=== PATIENT | female | born 1970 | race Caucasian/White ===

== ENCOUNTER 2021-03-27 16:09 | Outpatient (CLI) | payer OTHER, SELFPAY ==
--- NOTE | ~2021-03-27 | MM_ITS ---
EXAMINATION: MM screening shanice BI w virginie HISTORY: Screening mammogram TECHNIQUE: Craniocaudal and mediolateral oblique 3-D tomosynthesis images were obtained and synthetic 2-D images were generated. CAD analysis was submitted and interpreted. COMPARISON: No prior mammogram is available for comparison at this institution. BREAST PARENCHYMAL COMPOSITION: There are scattered areas of fibroglandular density. FINDINGS: 4.8 x 6 mm circumscribed opacity in the posterior upper outer right breast, consistent with benign lymph node. There is no evidence of suspicious mass, calcification, or architectural distorti on to suggest malignancy in either breast. There has been no suspicious interval change. IMPRESSION: 1. No mammographic evidence of malignancy. 2. Recommend routine screening mammography in one year. BI-RADS Category 2: Benign finding(s). Reviewed, dictated and finalized at location A. ATTENDANT
== END 2021-03-27 16:10 | disposition home or self-care (01) ==
PROVIDERS: PCP Internal Medicine; Visit Provider Internal Medicine
DX: Z12.31 Encounter for screening mammogram for malignant neoplasm of breast (principal)
CPT/HCPCS: 77063; 77067

== ENCOUNTER 2022-06-25 07:47 | Outpatient (CLI) | payer OTHER, SELFPAY ==
--- NOTE | ~2022-06-25 | MM_ITS ---
EXAMINATION: MM screening shanice BI w virginie HISTORY: Screening mammogram TECHNIQUE: Craniocaudal and mediolateral oblique 3-D tomosynthesis images were obtained and synthetic 2-D images were generated. CAD analysis was submitted and interpreted. COMPARISON: 03/27/2021 bilateral screening mammogram BREAST PARENCHYMAL COMPOSITION: There are scattered areas of fibroglandular density. FINDINGS: Stable circumscribed opacity probable lymph node in the posterior upper outer right breast. There is no evidence of suspicious mass, calcification, or architectural distortion to suggest malig idalia in either breast. There has been no suspicious interval change. IMPRESSION: 1. No mammographic evidence of malignancy. 2. Recommend routine screening mammography in one year. BI-RADS Category 2: Benign finding(s). Reviewed, dictated and finalized at location A. CTOR OF EXTENSION WORK
--- NOTE | ~2022-06-25 | DEXA_ITS ---
Bone Density Report Name: ACE ALMARAZ Age: 52 Sex: Female Ethnicity: White Date of : 1970 Indication: postmenopausal; screening for osteoporosis; height loss; Referring Provider: SWETA PEREZ Study: Bone densitometry was performed. Exam Date: June 25, 2022 Accession number: [id number] Bone Density: Region BMD T-score Z-score Classification AP Spine(L1-L4) 0.930 -1.1 0.0 Osteopenia Femoral Neck (Left) 0.689 -1.4 -0.4 Osteopenia Total Hip (Left) 0.825 -1.0 -0.3 Normal Femoral Neck (Right) 0.679 -1.5 -0.5 Osteopenia Total Hip (Right) 0.812 -1.1 -0.4 Osteopenia Total Hip Mean 0.818 -1.1 -0.4 Osteopenia World Health Organization criteria for BMD impression classify patients as: Normal (T-score at or above -1.0), Osteopenia (T-score between -1.0 and -2.5), or Osteoporosis (T-score at or below -2.5). 10-year Fracture Risk(1): Major Osteoporotic Fracture 6.4% Hip Fracture 0.5% Reported Risk Factors: [place] (), Neck BMD=0.679, BMI=25.6 (1) FRAX(R) Version 3.08. Fracture probability calculated for an untreated patient. Fracture probability may be lower if the patient has received treatment. Clinical Information Provided by Patient: Has used the following medications: Vitamin D, Calcium Patient maximum height was 68 Menopause Age: 43 Drinks caffeinated beverages Onset of menses at age 11 Number of children 0 Impression: The patient has low bone mass, based on the Right Femoral Neck T-score. The patient has an estimated ten-year risk of hip fracture of 0.5% and an estimated ten-year risk of major fracture of 6.4%, based on the WHO FRAX algorithm. Discussion: BONE DENSITY IS LOW AT ONE OR MORE SKELETAL SITES. This patient's lowest T-score is low at one or more skeletal sites. It meets the World Health Organization's (WHO) criteria for ?low bone mass? (T-score between -1.0 and -2.5). The patient's 10-year risk of fracture as calculated by FRAX is less than the threshold where pharmacological therapy is recommended by the National Osteoporosis Foundation (NOF). However, all treatment decisions require clinical judgment and consideration of individual patient factors, including patient preferences, comorbidities, previous drug use, risk factors not captured in the FRAX model (e.g., frailty, falls, vitamin D deficiency, increased bone turnover, interval significant decline in bone density) and possible under or overestimation of fracture risk by FRAX. The patient should follow a healthful lifestyle (good nutrition with adequate calcium and vitamin D, and appropriate weight-bearing exercise). Follow-Up: Consider repeating this study in 2 to 3 years to reassess this patient's status, or sooner if there is some new clinical indication. Reported by: JASPER on
== END 2022-06-25 07:48 | disposition home or self-care (01) ==
PROVIDERS: PCP Nurse Practitioner; Visit Provider Nurse Practitioner
DX: Z12.31 Encounter for screening mammogram for malignant neoplasm of breast (principal); Z13.820 Encounter for screening for osteoporosis; M85.88 Other specified disorders of bone density and structure, other site
CPT/HCPCS: 77063; 77067; 77080

== ENCOUNTER 2022-07-31 16:31 | Emergency (ER) | payer OTHER, SELFPAY ==
[2022-07-31 16:46] VITALS: BP 143/84; PULSE 73; RESP 16; TEMP 35.9; O2SAT 100
--- NOTE | 2022-07-31 17:26 | ED.URI ---
HPI - URI/Sore Throat General Chief Complaint: Upper Respiratory Infection Stated Complaint: cough,congestion Time Seen by Provider: 07/31/22 17:00 Source: patient Mode of arrival: ambulatory Limitations: no limitations History of Present Illness HPI Narrative: Tameka is a 52-year-old female patient presenting to the clinic today with complaints cough and congestion x5 days. She denies any fever chills. States she is having a productive cough with some yellow phlegm. History of asthma/bronchitis. She has been using an albuterol inhaler with mild relief. States she is coughing a lot at night and this is keeping her awake. MD elicited complaint: cough, rhinorrhea and nasal congestion Related Data Home Medications Medication Instructions Recorded Confirmed estradiol 1.25 gram/actuation 1 pump transdermal DAILY 04/13/19 07/31/22 (0.06%) transdermal gel pump (EstroGel) cetirizine 10 mg capsule (Allergy 10 mg PO DAILY 09/25/20 07/31/22 Relief (cetirizine)) Allergies Allergy/AdvReac Type Severity Reaction Status Date / Time latex Allergy Unknown unknown Verified 07/31/22 16:57 milk Allergy Unknown unknown Verified 07/31/22 16:57 nirmatrelvir AdvReac Rash Verified 07/31/22 16:57 [From Paxlovid (EUA)] ritonavir AdvReac Rash Verified 07/31/22 16:57 [From Paxlovid (EUA)] Molds and Smuts Allergy Unknown unknown Uncoded 07/31/22 16:57 Review of Systems Review of Systems: Pertinent positives per HPI. Patient denies any fever, chills, rash, headache, visual changes, dizziness,shortness of breath, chest pain, palpitations, nausea, vomiting, diarrhea, constipation, abdominal pain, or any urinary issues. FORMERLY [facility] Family History Family History Mother Family history of malignant neoplasm Family history of diabetes mellitus in first degree relative Social History Social History Smoking status: Never smoker Second hand tobacco smoke exposure: No Alcohol intake: current Drinks per week: 4 Alcohol use details: social Substance use: never Substance use type: does not use Comments At the time of my signature, I reviewed and agree with the nursing past medical, surgical, social, and family history. There is no relevant family history pertinent to the patient complaint. Exam Narrative: General: Well-developed, well nourished, in no apparent distress Head: Normocephalic, atraumatic Eyes: Pupils equally round and reactive to light bilaterally, EOM intact, sclera and conjunctive clear, no discharge, lids normal Ears: TMs intact and clear, ear canals clear, no drainage, grossly hearing normal. Nose: Nares patent, clear nasal discharge, no inflammation, no sinus tenderness. Mouth: Oral pharynx without lesions or masses, good dentition, MMM. Neck: Supple, trachea midline, no enlargement of anterior or posterior cervical nodes, no thyroid masses or goiter palpable. Cardio: Regular rate and rhythm, s1 and s2 normal, no murmur appreciated. Resp: Faint expiratory wheezing, no rhonchi, rales, or rubs Course Course Emergency Course: Portions of this record may have been created with voice recognition software. Level of Care: Express Care Visit Vital Signs Vital signs: Vital Signs Temperature 35.9 C L 07/31/22 16:46 Pulse Rate 73 07/31/22 16:46 Respiratory Rate 16 07/31/22 16:46 Blood Pressure 143/84 H 07/31/22 16:46 Pulse Oximetry 100 07/31/22 16:46 Oxygen Delivery Room Air 07/31/22 16:46 Temperature 35.9 C L 07/31/22 16:46 Pulse Rate 73 07/31/22 16:46 Respiratory Rate 16 07/31/22 16:46 Blood Pressure 143/84 H 07/31/22 16:46 Pulse Oximetry 100 07/31/22 16:46 Oxygen Delivery Room Air 07/31/22 16:46 Vital signs reviewed MDM - URI/Sore Throat MDM Narrative Medical decision making narrative: At the time of visit patient is rest
== END 2022-07-31 17:30 | disposition home or self-care (01) ==
PROVIDERS: Emergency Provider Nurse Practitioner Family; PCP Internal Medicine
DX: J40 Bronchitis, not specified as acute or chronic (principal)
CPT/HCPCS: 99213; G0463

== ENCOUNTER 2022-08-23 16:13 | Emergency (ER) | payer OTHER, SELFPAY ==
--- NOTE | ~2022-08-23 | XR_ITS ---
EXAMINATION: XR wrist RT min 3V DATE: 08/23/2022 17:33 INDICATION: Ulnar-sided right wrist pain post fall TECHNIQUE: Posteroanterior, ulnar deviation, oblique, and lateral views of the right wrist were obtai ana. COMPARISON: none FINDINGS: Bone alignment is normal. No fracture. Minimal to mild polyarticular osteoarthritis at the radial asp ect of the carpus and several of the metacarpophalangeal and interphalangeal joints. Soft tissues are unremarkable. IMPRESSION: 1. No acute osseous abnormality. Reviewed, dictated and finalized at location A.
--- NOTE | 2022-08-23 16:26 | ED.UPPEXIN ---
HPI - Extremity Injury (Upper) General Chief Complaint: Extremity Injury, Upper Stated Complaint: rt arm injury Time Seen by Provider: 08/23/22 16:50 Source: patient Mode of arrival: ambulatory Limitations: no limitations History of Present Illness HPI narrative: Tameka is a 52-year-old female patient presenting to the clinic today with complaints right wrist pain x1 week. She reports that she fell doing yard work last week and hit her right ulna on the concrete. Has a knot in a bruise over the area. States that the pain has not been getting better. She reports that she did feel a pop again today and now the pain is worse. She is concerned that she may have a fracture of her ulna and is requesting an x-ray. Related Data Home Medications Medication Instructions Recorded Confirmed estradiol 1.25 gram/actuation 1 pump transdermal DAILY 04/13/19 07/31/22 (0.06%) transdermal gel pump (EstroGel) cetirizine 10 mg tablet (Zyrtec) 10 mg PO DAILY 08/23/22 08/23/22 prednisone 5 mg tablet 5 mg PO DAILY 08/23/22 08/23/22 Allergies Allergy/AdvReac Type Severity Reaction Status Date / Time latex Allergy Unknown unknown Verified 08/23/22 16:49 milk Allergy Unknown unknown Verified 08/23/22 16:49 nirmatrelvir AdvReac Rash Verified 08/23/22 16:49 [From Paxlovid (EUA)] ritonavir AdvReac Rash Verified 08/23/22 16:49 [From Paxlovid (EUA)] Molds and Smuts Allergy Unknown unknown Uncoded 08/23/22 16:49 Review of Systems Review of Systems: Pertinent positives per HPI. Patient denies any fever, chills, rash, headache, visual changes, dizziness, cough, shortness of breath, chest pain, palpitations, nausea, vomiting, diarrhea, constipation, abdominal pain, or any urinary issues. FORMERLY [facility] Family History Family History Mother Family history of malignant neoplasm Family history of diabetes mellitus in first degree relative Social History Social History Smoking status: Never smoker Second hand tobacco smoke exposure: No Alcohol intake: current Drinks per week: 4 Alcohol use details: social Substance use: never Substance use type: does not use Comments At the time of my signature, I reviewed and agree with the nursing past medical, surgical, social, and family history. There is no relevant family history pertinent to the patient complaint. Exam Narrative: General: Well-developed, well nourished, in no apparent distress Head: Normocephalic, atraumatic. Cardio: Regular rate and rhythm, s1 and s2 normal, no murmur appreciated. Resp: Clear to auscultation bilaterally, no rhonchi, rales, wheezing or rubs. Musculoskeletal: Mild knot/swelling/bruising to the right volar aspect of the distal ulna with tenderness to palpation, no pain with flexion or extension of the right wrist, grossly normal range of motion, muscle strength strong and equal, peripheral pulse strong, no edema, no cyanosis, normal gait and station Course Course Emergency Course: Portions of this record may have been created with voice recognition software. Level of Care: Express Care Visit Vital Signs Vital signs: Vital Signs Temperature 36.7 C 08/23/22 16:47 Pulse Rate 74 08/23/22 16:47 Respiratory Rate 18 08/23/22 16:47 Blood Pressure 141/66 H 08/23/22 16:47 Pulse Oximetry 100 08/23/22 16:47 Oxygen Delivery Room Air 08/23/22 16:47 Temperature 36.7 C 08/23/22 16:47 Pulse Rate 74 08/23/22 16:47 Respiratory Rate 18 08/23/22 16:47 Blood Pressure 141/66 H 08/23/22 16:47 Pulse Oximetry 100 08/23/22 16:47 Oxygen Delivery Room Air 08/23/22 16:47 Vital signs reviewed MDM - Extremity Injury (Upper) MDM Narrative Medical decision making narrative: At the time of visit patient is resting comfortably on the exam table. Patient was sent to the [facility] for x-ray. X-ray is
[2022-08-23 16:47] VITALS: BP 141/66; PULSE 74; RESP 18; TEMP 36.7; O2SAT 100
--- NOTE | 2022-08-23 16:56 | PC.NURSE ---
1653- RN to RN report received from Reema Costello. Pt transferred from [facility] d/t no xray availability
== END 2022-08-23 17:55 | disposition home or self-care (01) ==
PROVIDERS: Emergency Provider Nurse Practitioner Family; PCP Internal Medicine
DX: S60.211A Contusion of right wrist, initial encounter (principal); W19.XXXA Unspecified fall, initial encounter; Y93.H9 Activity, other involving exterior property and land maintenance, building and construction; J45.909 Unspecified asthma, uncomplicated
CPT/HCPCS: 73110; 99213; G0463

== ENCOUNTER → 2023-02-03 07:54 | Outpatient (CLI) | payer OTHER, SELFPAY ==
--- NOTE | ~2023-02-03 | MR_ITS ---
EXAMINATION: MR lumbar spine wo con DATE: 02/03/2023 08:22 INDICATION: Low back pain TECHNIQUE: Magnetic resonance imaging (MRI) of the lumbar spine was performed without intravenous con trast. Sequences included sagittal T2-weighted FSE, sagittal T2-weighted FS FSE, sagittal T1-weighted FSE, and axial T2-weighted FSE. COMPARISON: None FINDINGS: L5 spondylolysis with bilateral pars intra-articular is defects and 3 mm anterolisthesis of L5 on S1. Vertebral body heights are normal. Annular fissure and mild disc height loss at L5-S1 with associate d T1 and T2 hyperintense fibrofatty and fibrovascular degenerative endplate changes. Remaining discs are normal. The conus medullaris terminates at L2. There is normal signal in the caudal spinal cord. Paravertebral soft tissues are unremarkable. The following disc levels are specifically discussed: T12-L1: The disc does not extend beyond the endplate margin. There is mild bilateral facet joint oste oarthritis. There is no neural foraminal stenosis. There is no central canal stenosis. L1-L2: Very small left subarticular zone disc protrusion. There is mild bilateral facet joint osteoar thritis. There is no neural foraminal stenosis. There is negligible central canal stenosis. L2-L3: Very small bilateral foraminal zone disc protrusions. There is mild right and minimal left fac et joint osteoarthritis. There is mild left and minimal right neural foraminal stenosis. There is no central canal stenosis. L3-L4: Very small bilateral foraminal zone disc protrusions. There is mild bilateral facet joint oste oarthritis. There is mild left and minimal right neural foraminal stenosis. There is no central canal stenosis. L4-L5: Disc is bulging. There is moderate bilateral facet joint osteoarthritis. There is mild bilater al neural foraminal stenosis. There is mild central canal stenosis. L5-S1: Disc is bulging with annular fissure. Bilateral L5 pars interarticularis defects. There is mil d bilateral facet joint osteoarthritis. There is mild bilateral neural foraminal stenosis. There is n o central canal stenosis. IMPRESSION: 1. Mild lumbar spondylosis most notable for L5 spondylolysis with 3 mm anterolisthesis of L5 on S1. Reviewed, dictated and finalized at location A. IMPRESSION: 1. Mild lumbar spondylosis most notable for L5 spondylolysis with 3 mm anteroli sthesis of L5 on S1.
== END ==
PROVIDERS: PCP Nurse Practitioner Family; Visit Provider Nurse Practitioner Family
DX: M43.06 Spondylolysis, lumbar region (principal)
CPT/HCPCS: 72148

== ENCOUNTER 2023-06-26 08:54 | Outpatient (CLI) | payer OTHER, SELFPAY ==
--- NOTE | ~2023-06-26 | MM_ITS ---
EXAMINATION: MM screening shanice BI w virginie HISTORY: Screening mammogram, family history of breast cancer in her mother. TECHNIQUE: Craniocaudal and mediolateral oblique 3-D tomosynthesis images were obtained and synthetic 2-D images were generated. CAD analysis was submitted and interpreted. COMPARISON: 06/25/2022, 03/27/2021 BREAST PARENCHYMAL COMPOSITION: There are scattered areas of fibroglandular density. FINDINGS: No suspicious mass, calcification, or architectural distortion are identified in either kary ast to suggest malignancy. There has been no suspicious interval change. IMPRESSION: 1. No mammographic evidence of malignancy. 2. Recommend routine screening mammography in one year. BI-RADS Category 1: Negative Reviewed, dictated and finalized at location A. ERPRESS SETTER
== END 2023-06-26 08:55 | disposition home or self-care (01) ==
LOC: ANHIMG 08:55
PROVIDERS: PCP Nurse Practitioner Family; Visit Provider Nurse Practitioner Family
DX: Z12.31 Encounter for screening mammogram for malignant neoplasm of breast (principal)
CPT/HCPCS: 77063; 77067

== ENCOUNTER 2024-02-27 10:58 | Emergency (ER) | payer OTHER, SELFPAY ==
[2024-02-27 11:09] VITALS: BP 142/85; PULSE 81; RESP 17; TEMP 36.7; O2SAT 99
--- NOTE | 2024-02-27 11:20 | ED.GENADULT ---
HPI - General Adult General Chief complaint: Nausea/Vomiting/Diarrhea Stated complaint: stomach bug Time Seen by Provider: 02/27/24 11:20 Source: patient Mode of arrival: ambulatory Limitations: no limitations History of Present Illness HPI narrative: 53-year-old female patient presents to the [facility] with complaints of diarrhea for the past 5 days. Patient states she has had some body aches and chills but denies any fevers she is aware of. Denies vomiting states she has been feeling very nauseous has had some abdominal pain. Patient states that she did eat some and that her symptoms started 24 hours later. Patient states she has been trying to take some Imodium for symptoms but states that her diarrhea has gotten worse to the point were she is not able to control it sometimes and it is yellow liquidy. Related Data Home Medications Medication Instructions Recorded Confirmed cetirizine 10 mg tablet (Zyrtec) 10 mg PO DAILY 08/23/22 02/27/24 calcium 600 mg (as carbonate)-vit 1 tablet PO BID 02/10/23 02/27/24 D3 20 mcg (800 unit) chewable tablet (Caltrate plus D) estradiol 1.25 gram/actuation 0.5 pump transdermal DAILY 09/01/23 02/27/24 (0.06%) transdermal gel pump (EstroGel) fluticasone propionate 50 2 spray intranasal DAILY 02/08/24 02/27/24 mcg/actuation nasal spray,suspension albuterol 90 mcg/actuation aerosol 90 mcg inhalation PRN PRN 02/27/24 02/27/24 inhaler Shortness Of Breath Or Wheezing Allergies Allergy/AdvReac Type Severity Reaction Status Date / Time milk AdvReac Intermediate Gastrointestinal Verified 02/27/24 11:07 Upset latex AdvReac Mild Rash Verified 02/27/24 11:07 nirmatrelvir AdvReac Mild Rash Verified 02/27/24 11:07 [From Paxlovid (EUA)] ritonavir AdvReac Mild Rash Verified 02/27/24 11:07 [From Paxlovid (EUA)] Molds and Smuts AdvReac Mild Rash Uncoded 02/27/24 11:07 Review of Systems Review of Systems: CONSTITUTIONAL: Denies fever, chills, or sweats. EYES: Denies visual changes, redness, or discharge. ENT: Denies rhinorrhea, congestion, sore throat, or otalgia. CARDIOVASCULAR: Denies chest pain, palpitations, or edema. RESPIRATORY: Denies cough or dyspnea. GASTROINTESTINAL: Positive abdominal pain, nausea, denies vomiting, positive diarrhea. GENITOURINARY: Denies dysuria or hematuria. SKIN: Denies rash or itching. MUSCULOSKELETAL: Denies back pain, joint pain, or myalgia. NEUROLOGIC: Denies headache, numbness, or weakness. PSYCHIATRIC: Denies anxiety or depression. [facility] Past Medical History Medical History Lumbar spondylosis Osteopenia Family History Family History Mother Family history of malignant neoplasm Family history of diabetes mellitus in first degree relative Social History Social History Smoking status: Never smoker Second hand tobacco smoke exposure: No Alcohol intake: current Drinks per week: 4 Alcohol use details: social Substance use: never Substance use type: does not use Do You Feel Safe in your Home?: Yes Lack of Transportation: No Lack of Food: Never True Current Housing: I Have Housing Concerned About Future Housing: No Difficulty Paying Gas/Electric Bills: No Difficulty Paying for Meds: No Currently Unemployed: No Education: Trade/Vocational Certificate Difficulty w/ Childcare or Family Care: No Living arrangements: with family Occupation/Education: occupation Gender identity (if verbalized by the patient): Female Sexual Orientation (if Verbalized by the Patient): Straight or Heterosexual Spiritual care concerns: No Agree to blood products: Yes Comments At the time of my signature I agree with nursing past medical history, surgical, social, and family history. There is no relevant family history pertinent to the
== END 2024-02-27 11:35 | disposition short-term general hospital (02) ==
PROVIDERS: Emergency Provider Nurse Practitioner Family; PCP Nurse Practitioner Family
DX: R10.84 Generalized abdominal pain (principal); R19.7 Diarrhea, unspecified; M85.80 Other specified disorders of bone density and structure, unspecified site; M47.816 Spondylosis without myelopathy or radiculopathy, lumbar region
CPT/HCPCS: 99212; G0463

== ENCOUNTER 2024-07-24 10:59 | Emergency (ER) | payer OTHER, SELFPAY ==
--- OUTSIDE RECORDS SUMMARY | 2024-07-24 11:02 | XMS_ITS | Clinical Summary ---
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 Gender Identity Not on file Sexual Orientation Not on file Plan of Treatment Health Maintenance Due Date Last Done Comments Hepatitis C Virus (HCV) Screening 1970 TdaP Immunization 1968 Hepatitis B Immunization (1 of 3 - 19+ 3-dose series) 1987 Pap Smear 1989 Cervical Cancer Screening (CCS) 1998 HPV/Cotest 1998 Colonoscopy 2013 Colorectal Cancer Screening 2013 Cologuard 2018 Immunochemical Fecal Occult Blood 2018 Mammogram 2018 Pneumococcal Immunization (5 0+ years) (1 of 1 - PCV) 2018 Zoster Immunization (1 of 2) 2018 Influenza Immunization (#1) 2024 SARS-COV-2 Immunization ( - 2023- season) 2024 Respiratory Syncytial Virus (RSV) Immunization (Adult) (1 - 1-dose 75+ series) 2043 Meningococcal Immunization (ACWY) Aged Out No longer eligible based on patient's age to complete this topic Pneumococcal Immunization Combined Aged Out No longer eligible based on patient's age to complete this topic Rotavirus Immunization Aged Out No lo nger eligible based on patient's age to complete this topic
--- OUTSIDE RECORDS SUMMARY | 2024-07-24 11:02 | XMS_ITS | Clinical Summary ---
Author Organization [facility] Address [facility] [place] [address] Care Team Providers Care Wash Worker Name Role Phone Todd Nuñez MD Primary Care Provider [phone] Allergies Active Allergy Reactions Criticality Noted Date Comments Latex Unknown 07/05/2021 Medications Cetirizine-Pseudoe phedrine (ZYRTEC-D ALLERGY & CONGESTION OR) Activ e Estradiol (ESTROGEL) 0.75 MG/1.25 GM (0.06%) Gel Active Social History Tobacco Use Types Packs/Day Years Used Date Smoking Tobacco: Never Smokeless Tobacco: Never Alcohol Use Standard Drinks/Week Comments Yes 0 (1 standard drink = 0.6 oz pur e alcohol) RARELY Comments Unknown Sex and Gender Information Value Date Recorded Sex Assigned at Not on file Legal Sex Female 4:34 PM CDT Gender Identity Not on file Sexual Orientation Not on file Last Filed Vital Signs Vital Sign Reading Time Taken Comments Blood Pressure 148/93 07/07/2019 4:41 PM SURGEON'S ASSISTANT Pulse 106 07/07/2019 4:41 PM SURGEON'S ASSISTANT Temperature 36.7 C (98.1 F) 07/07/2019 4:41 PM SURGEON'S ASSISTANT Respiratory Rate 20 07/07/2019 4:41 PM SURGEON'S ASSISTANT Oxygen Saturation 99% 07/07/2019 4:41 PM SURGEON'S ASSISTANT Inhaled Oxygen Concentration - - Weight 69.4 kg (153 lb) 07/07/2019 4:41 PM SURGEON'S ASSISTANT Height 172.7 cm (5' 8 ) 07/07/2019 4:41 PM SURGEON'S ASSISTANT Body Mass Index 23.26 07/07/2019 4:41 PM SURGEON'S ASSISTANT Plan of Treatment Health Maintenance Due Date Last Done Comments Colorectal Cancer Screening Colonoscopy (10 Years) 1968 Annual Physical 1971 Hepatitis C 1986 DTaP, Tdap and Td Vaccines ( 1 - Tdap) 1987 Hepatitis B Vaccines (1 of 3 - 19+ 3-dose series) 1987 Mammogram Screening 2008 Zoster Vaccines (1 of 2) 2018 COVID-19 Vaccine (1 - 2023-2 5 season) 2024 Influenza Adult (#1) 2024 Meningococcal B Vaccine Aged Out No l onger eligible based on patient's age to complete this topic Meningococcal Vaccine Aged Out No kaykay nestor eligible based on patient's age to complete this topic Pneumococcal Vaccine: Pediat rics (0 to 5 Years) and At-Risk Patients (6 to 64 Years) Aged Out No longer eligible b ased on patient's age to complete this topic RSV Immunizations Under 20 Months Aged Out No longer eligible based on patient's age to complete this topic Insurance [employer] Care Teams Wash Worker Relationship Specialty Start Date End Date Todd Nuñez MD [address] [place] [address] PCP - General INTERNAL MEDICINE 07/07/19
--- OUTSIDE RECORDS SUMMARY | 2024-07-24 11:02 | XMS_ITS | Referral Summary ---
Author Organization [facility] [place] [address] Address [address] [place] [address] Care Team Providers Care Account Leader Name Role Phone Todd Nuñez MD Primary Care Provider [phone] Todd Nuñez MD Unavailable Encounters Date Type Department Care Team Description 06/06/2024 Telephone [facility] Specialty Services [address] [place] [phone] Sarah Campbell, JAMES GI PROCEDURE 3 DAY PRE CALL 06/01/2024 Telephone [facility] Gastroenterology [address] [place] [address] [facility] [place] [address] [place] [address] Sarah Vera, STORE SALES MANAGER 05/31/2024 Telephone [facility] Gastroenterology [address] [place] [address] [facility] [place] [address] [place] [address] Mackenzie Perez from Last 3 Months Allergies Active Allergy Reactions Criticality Noted Date Comments Latex Rash Reaction: RASH Latex Rash Medium 02/01/2019 Prochlorperazine Blisters High 02/06/2020 Reaction: BLISTERS, Medications albuterol HFA (PROVENTIL HFA,VENTOLIN HFA,PROAIR HFA) 90 mcg/actuation inhaler INHALE 1-2 PUFFS EVERY 4-6 HOURS NEEDED AND DIRECTED. 8 Active calcium carbonate-mag oxide (Oyster Shell Calcium and Mag) 250-155 mg tablet daily 0 Active cholecalciferol (VITAMIN D-3) 2000 unit tablet 2 QD = 4000 1 Active cetirizine (ZyrTEC) 10 mg capsule Take by mouth as needed Active amoxicillin 500 mg capsule TAKE 1 CAPSULE BY MOUTH 3 TIMES A DAY UNTIL GONE 2 Active ibuprofen (ADVIL,MOTRIN) 800 mg tablet TAKE 1 TABLET BY MOUTH EVERY 6 TO 8 HOURS NEEDED FOR DISCOMFORT 2 Active ondansetron (ZOFRAN) 4 mg tablet Take 1 tablet (4 mg total) by mouth every 6 (six) hours 12 tablet 2 Active fluticasone propionate (FLONASE) 50 mcg/actuation nasal spray Administer 1 spray into each nostril daily Active meclizine (ANTIVERT) 25 mg tablet Take 1 tablet (25 mg total) by mouth 3 (three) times a day as needed for dizziness 30 tablet 4 Active dicyclomine (BENTYL) 10 mg capsuleIndicati ons:Abdominal Pain with Cramps,Irritabl e Bowel Syndrome Take 1 capsule (10 mg total) by mouth 4 (four) times a day before meals and nightly for 20 doses 20 capsule 4 Active Additional Information Patient not taking.Reported on 04/18/2024 sodium, potassium & mag sulfates (Suprep Bowel Prep Kit) 17.5-3.13-1.6 gram recon solnIndications :Bowel Evacuation MIX AND DRINK INSTRUCTED FOR BOWEL PREP 354 mL 4 Active estradioL 0.5 mg/0.5 gram (0.1 %) gel in packetIndicatio ns:Vasomotor Symptoms associated with Menopause PLACE 1 APPLICATION ON THE SKIN DAILY 30 packet 1 5 Active Active Problems Problem Noted Date Diagnosed Date Diarrhea 04/18/2024 Assessment & Plan (04/18/2024 11:29 AM CUSTOMER CONTACT REPRESENTATIVE): Ms. Almaraz is a 54 y.o. female with Hx of cervical and lumbar bulging, climacteric symptoms, who presents to GI clinic due to diarrhea and recent findings of pancolitis on CTAP. #Acute diarrhea - Resolved #Colitis on CT Patient with no prior GI history presented new onset episode of acute diarrhea associated to abd pain, and was found to have pancolitis on CTAP. Symptoms resolved after course of antibiotics and currently patient is asymptomatic. Most likely etiology of thi episode could have been infectious gastroenteritis which resolved, however given lack of prior screening CRC screening, will proceed w Colonoscopy for screening and to assess mucosa. #GERD #Dysphagia Patient has history of longstanding GERD intermittently on PPI, also has had dysphagia primarily to solids. Given these symptoms will proceed with EGD to assess for esophagitis and intraluminal causes of dysphagia. Plan: - Will schedule for EGD off PPIs - Will schedule for Colonoscopy Dysphagia 04/18/[address] scan 04/18/2024 Menopausal symptoms 08/27/2023 Assessment & Plan (08/27/2023 10:13 AM CDT): Patient counseled on options for her vasomotor symptoms including HRT, SSRI, lifestyle changes, and other medication options. Discussed risks and benefits. Discussed family hx of breast cancer in her mother and discussed that HRT can feed breast cancer/make it worse if she ever does get it in her future. She is ok with these risks and would like to continue with HRT management. She used transdermal estrogen in the past and it worked well. Would like to try this again. Estradiol transdermal 0.5mg daily order placed. Discussed importance of self breast awareness and keeping up with her mammograms. Encouraged her to make an appointment after trying for a couple of months if she would like to discuss further options. She is comfortable with this plan. Well woman exam with routine gynecological exam 08/26/2023 Assessment & Plan (08/27/2023 10:00 AM CDT): The patient was here for her well woman exam. She is doing fine. We discussed healthy lifestyle choices such as exercise, diet, multivitamins, calcium, Vit D and avoidance of tobacco, vaping and drug use. Yearly mammography was recommended. She plans to follow up again in one year. Not indicated. Social History Tobacco Use Types Packs/Day Years Used Date Smoking Tobacco: Never Smokeless Tobacco: Never Tobacco Cessation:Counseling Given: Not Answered AUDIT-C Answer Date Recorded Q1: How often do you have a drink containing alc ohol? 2-3 times a week 08/27/2023 Q2: How many drinks containi ng alcohol do you have on a typical day when you are drinking? 1 or 2 08/27/2023 Q3: How often do you have si x or more drinks on one occasion? Never 08/27/2023 Personal Safety Answer Date Recorded Have you ever been in or are you currently in a harmful physical or emotional relationship or is someone making you feel afraid or unsafe? Denies 02/27/2024 Comments No Sex and Gender Information Value Date Recorded Sex Assigned at Not on file Legal Sex Female 12:28 PM CUSTOMER CONTACT REPRESENTATIVE Gender Identity Not on file Sexual Orientation Not on file Last Filed Vital Signs Vital Sign Reading Time Taken Comments Blood Pressure 145/89 04/18/2024 8:40 AM CUSTOMER CONTACT REPRESENTATIVE Pulse 71 04/18/2024 8:40 AM CUSTOMER CONTACT REPRESENTATIVE Temperature 36.5 C (97.7 F) 04/18/2024 8:40 AM CUSTOMER CONTACT REPRESENTATIVE Respiratory Rate 17 02/27/2024 3:30 PM CDT Oxygen Saturation 99% 04/18/2024 8:40 AM CUSTOMER CONTACT REPRESENTATIVE Inhaled Oxygen Concentration - - Weight 72.6 kg (160 lb) 04/18/2024 8:40 AM CUSTOMER CONTACT REPRESENTATIVE Height 170.2 cm (5' 7 ) 04/18/2024 8:40 AM CUSTOMER CONTACT REPRESENTATIVE Body Mass Index 25.06 04/18/2024 8:40 AM CUSTOMER CONTACT REPRESENTATIVE Plan of Treatment Not on file Procedures Procedure Name Priority Date/Time Associated Diagnosis Comments SCREENING MAMMOGRAM BILATERAL W [place]IO 03/08/2020 9:28 AM CDT HEPATITIS C ANTIBODY Routine 02/12/2018 3:35 PM CDT from Last 3 Months or Most Recently Relevant to Health Maintenance Results * Screening Mammogram Bilateral W [place] (03/08/2020 9:28 AM CDT) Anatomical Region Laterality Modality Breast Bilateral Mammography 03/08/2020 9:34 AM CDT Narrative 03/08/2020 11:36 AM CDT Patient Name: TAMEKA LEPE Dr: Ninfa Dawson MDO.B: 1970 Exam Date: 03/08/20927 Age: 50 Sex: Female MR#: [id number] Loc: RADIOLOGY REPORT Order #[id number] [facility] Porfirio Bilat Screening 3D Signed - MG BILATERAL DIGITAL SCREENING MAMMOGRAM 3D/2D WITH MEDIOLATERAL OBLIQUE CRANIOCAUDAL: 03/08/2020 The study was acquired using full field digital technology and interpreted from soft copy. 2D digital mammographic views, as well as 3D digital tomosynthesis were performed in the CC and MLO projections. CLINICAL: Routine mammogram. Patient denies any problems. Mother and aunt with breast cancer. No personal history of breast cancer. COMPARISONS: Comparison is made to exams dated: 09/11/2017 mammogram - [facility], 06/10/2016 mammogram, and 05/05/2014 mammogram - [place]. BREAST TISSUE: There are scattered areas of fibroglandular density. FINDINGS: No significant masses, calcifications, or other findings are seen in either breast. There has been no significant interval change. IMPRESSION: BI-RAD 1 NEGATIVE There is no mammographic evidence of malignancy. A 1 year screening mammogram is recommended. The patient has been or will be contacted. We recommend annual screening mammography for women at average risk of breast cancer beginning at age 40, based on guidelines of the [place] [employer] (ACR Practice Parameter for the Performance of Screening and Diagnostic Mammography) and [place] [employer]. For women with an elevated risk of breast cancer, please refer to the ACR Practice Parameter for specific screening recommendations. The patient will be entered into a reminder system with a target due date of 1 year for her next screening exam. Electronically signed by: Ilia castillo/mandeep:03/08/2020 11:36:31 Document Control Coordinator: Chelo Etienne, [facility] letter sent: Normal Exam Reading location: BI-RADS: 1 Negative REPORT ELECTRONICALLY SIGNED IN OTHER VENDOR SYSTEM Resulting Agency Comment O Procedure Note Ilia Blank MD - 03/08/2020 Patient Name: TAMEKA LEPE Dr: Ninfa Dawson MDO.B: 1970 Exam Date: 03/08/20927 Age: 50 Sex: Female MR#: [id number] Loc: RADIOLOGY REPORT Order #[id number] [facility] Porfirio Bilat Screening 3D Signed - MG BILATERAL DIGITAL SCREENING MAMMOGRAM 3D/2D WITH MEDIOLATERAL OBLIQUE CRANIOCAUDAL: 03/08/2020 The study was acquired using full field digital technology andinterpreted from soft copy. 2D digital mammographic views, as well as 3D digital tomosynthesis were performed in the CC and MLO projections. CLINICAL: Routine mammogram. Patient denies any problems. Mother and auntwith breast cancer. No personal history of breast cancer. COMPARISONS: Comparison is made to exams dated: 09/11/2017 mammogram -[facility], 06/10/2016 mammogram, and 05/05/2014 mammogram -[place]. BREAST TISSUE: There are scattered areas of fibroglandular density. FINDINGS: No significant masses, calcifications, or other findings areseen in either breast. There has been no significant interval change. IMPRESSION: BI-RAD 1 NEGATIVE There is no mammographic evidence of malignancy. A 1 year screeningmammogram is recommended. The patient has been or will be contacted. We recommend annual screening mammography for women at average risk ofbreast cancer beginning at age 40, based on guidelines of the [place] [employer] (ACR Practice Parameter for the Performance of Screening and Diagnostic Mammography) and [place] [employer]. For women with an elevated risk of breast cancer, pleaserefer to the ACR Practice Parameter for specific screening recommendations. The patient will be entered into a reminder system with a target due dateof 1 year for her next screening exam. Electronically signed by: Ilia castillo/mandeep:03/08/2020 11:36:31 Document Control Coordinator: Chelo Etienne, [facility] letter sent: Normal Exam Reading location: BI-RADS: 1 Negative REPORT ELECTRONICALLY SIGNED IN OTHER VENDOR SYSTEM us Ninfa Angulo MD [facility] [place] MAMMO PROCEDURES Aida l Result * Hepatitis C antibody (02/12/2018 3:35 PM CDT) Hep C Ab NONREACT NONREACTIVE Comment: Siemens EdvertaurXP using ELIN (chemiluminescent immunoassay) technology. NONREACTIVE: Antibodies to Hepatitis C not detected. This does not exclude early acute Hepatitis C infection, possibility of exposure to Hepatitis C, antibodies below detection limit, or to lack of antibody reactivity to the antigen used in this assay. EQUIVOCAL: Antibodies to Hepatitis C may or may not be present. Sample to be confirmed by real-time PCR method. REACTIVE: Antibodies to Hepatitis C detected. 02/12/2018 3:35 PM CDT 02/12/2018 3:52 PM CDT Ponce Lopez MD LAB MICROBIOLOGY - GENERAL OR DERABLES Final Result [facility] HISTORICAL RESULTS from Last 3 Months or Most Recently Relevant to Health Maintenance Insurance [facility] CMR [facility] C[facility] CMR Care Teams Account Leader Relationship Specialty Start Date End Date Todd Nuñez MD [address] [place] [address] PCP - General 03/08/20 Todd Nuñez MD [address] [place] [address] Internal Medicine 03/07/19
--- OUTSIDE RECORDS SUMMARY | 2024-07-24 11:02 | XMS_ITS | Clinical Summary ---
Author Organization [facility] [place] [address] Address [address] [place] [address] Care Team Providers Care Manager Ambulatory Name Role Phone Todd Nuñez MD Primary Care Provider [phone] Todd Nuñez MD Unavailable Allergies Active Allergy Reactions Criticality Noted Date [...] 04/18/2024 Assessment & Plan (04/18/2024 11:29 AM SAMPLE MAKER HAND): Ms. Almaraz is a 54 y.o. female [...] up again in one year. Not indicated. Encounters Date Type Department Care Team Description 06/06/2024 Telephone [facility] Specialty Services [address] [place] [phone] Sarah Campbell, JAMES GI PROCEDURE 3 DAY PRE CALL 06/01/2024 Telephone [facility] Gastroenterology [facility] [address] [place] [address] [place] [address] Sarah Vera CMA 05/31/2024 Telephone [facility] Gastroenterology [facility] [address] [place] [address] [place] [address] Mackenzie Perez from Last 3 Months Surgical History Surgery Date Site/Laterality Comments TONSILLECTOMY HYSTERECTOMY W/ BILATERAL SALPINGOOPHORECTOMY 06/11/2013 - 07/08/2013 [facility] LAPAROSCOPIC CHOLECYSTECTOMY 06/11/2013 - 07/08/2013 along with TL-BSO TOOTH EXTRACTION 07/10/2019 - 08/09/2019 Right Medical History Medical History Date Comments Bulging of cervical intervertebral disc 2007 Family History Medical History Relation Name Comments Diabetes Father Family history of diabetes mellitus (DM) - (Added by TW Conv) Ovarian cancer Maternal Grandmother Breast cancer Maternal cousin Annarose maternal un francesco's daughter Breast cancer Mother Cervical cancer Mother Family histo ry of ovarian cancer - (Added by TW Conv) Diabetes Mother Family history of diabetes mellitus (DM) - (Added by TW Conv) Breast cancer Mother's Sister Colon cancer Neg Hx Thrombophilia Neg Hx Relation Name Status Comments Father Maternal Grandmother Maternal cousin Annarose Alive Mother Mother's Sister Social History Tobacco Use Types Packs/Day Years [...] on file Legal Sex Female 12:28 PM SAMPLE MAKER HAND Gender Identity Not on file Sexual Orientation Not on file Obstetrics History Para Term AB IAB SAB Ectopic Multiple Livin g Live Births 0 0 0 0 0 0 0 0 0 0 0 Last Filed Vital Signs Vital Sign Reading Time Taken Comments Blood Pressure 145/89 04/18/2024 8:40 AM SAMPLE MAKER HAND Pulse 71 04/18/2024 8:40 AM SAMPLE MAKER HAND Temperature 36.5 C (97.7 F) 04/18/2024 8:40 AM SAMPLE MAKER HAND Respiratory Rate 17 02/27/2024 3:30 PM CDT Oxygen Saturation 99% 04/18/2024 8:40 AM SAMPLE MAKER HAND Inhaled Oxygen Concentration - - Weight 72.6 kg (160 lb) 04/18/2024 8:40 AM SAMPLE MAKER HAND Height 170.2 cm (5' 7 ) 04/18/2024 8:40 AM SAMPLE MAKER HAND Body Mass Index 25.06 04/18/2024 8:40 AM SAMPLE MAKER HAND Plan of Treatment Health Maintenance Due Date Last Done Comments Colon Cancer Screening-Colonoscopy 1970 Depression Screening 1970 DTaP/Tdap/Td Vaccine (1 - Tdap) 1979 Hepatitis B Screening 1986 Zoster Vaccine (1 of 2) 2018 Breast Cancer Screening-Mammogram 03/08/2021 03/08/2020, 09/11/2017, 05/05/2014 Covid-19 Vaccine ( season) 2024 09/29/2020, 09/01/2020 Influenza Vaccine (#1) 2024 Regular Well Visit/Exam 18-64 08/26/2024 08/27/2023, 08/21/2022, 07/12/2021, Additional history exists Hepatitis C Screening Completed 02/12/2018 Pneumococcal vaccine <65 Aged Out No longer eligible based on patient's age to complete this topic Procedures Procedure Name Priority Date/Time Associated Diagnosis [...] Narrative 03/08/2020 11:36 AM CDT Patient Name: ACE LEPE Dr: Ninfa Dawson MD D.O.B: 1970 Exam Date: 03/08/20927 Age: 50 Sex: Female MR#: [id number] Loc: RADIOLOGY REPORT Order #[id number] [facility] Porfirio Bilat Screening 3D Signed - MG [...] made to exams dated: 09/11/2017 mammogram - [facility], 06/10/2016 mammogram, and 05/05/2014 mammogram - [place]. BREAST TISSUE: There are scattered areas of [...] age 40, based on guidelines of the [place] [employer] (ACR Practice Parameter for the Performance of Screening and Diagnostic Mammography) and [place] [employer]. For women with an elevated risk of breast cancer, please refer to the ACR Practice Parameter for specific screening recommendations. The patient will be entered into a reminder system with a target due date of 1 year for her next screening exam. Electronically signed by: Ilia castillo/mandeep:03/08/2020 11:36:31 Blintze Roller: Chelo Etienne, [facility] letter sent: Normal Exam Reading location: BI-RADS: 1 Negative REPORT ELECTRONICALLY SIGNED IN OTHER VENDOR SYSTEM Resulting Agency Comment O Procedure Note Ilia Blank MD - 03/08/2020 Patient Name: ACE LEPE Dr: Ninfa Dawson MD D.O.B: 1970 Exam Date: 03/08/2028 Age: 50 Sex: Female MR#: [id number] Loc: RADIOLOGY REPORT Order #[id number] [facility] Porfirio Bilat Screening 3D Signed - MG [...] is made to exams dated: 09/11/2017 mammogram -[facility], 06/10/2016 mammogram, and 05/05/2014 mammogram -[place]. BREAST TISSUE: There are scattered areas of [...] age 40, based on guidelines of the [place] [employer] (ACR Practice Parameter for the Performance of Screening and Diagnostic Mammography) and [place] [employer]. For women with an elevated risk of breast cancer, pleaserefer to the ACR Practice Parameter for specific screening recommendations. The patient will be entered into a reminder system with a target due dateof 1 year for her next screening exam. Electronically signed by: Ilia Jolley rl/mandeep:03/08/2020 11:36:31 Blintze Roller: Chelo Etienne, [facility] letter sent: Normal Exam Reading location: BI-RADS: 1 Negative REPORT ELECTRONICALLY SIGNED IN OTHER VENDOR SYSTEM us Ninfa Angulo MD IMG MAMMO PROCEDURES Aida l Result * Hepatitis C antibody (02/12/2018 3:35 PM CDT) Hep C Ab NONREACT NONREACTIVE Comment: Siemens CentaurXP using ELIN (chemiluminescent immunoassay) technology. NONREACTIVE: Antibodies [...] MICROBIOLOGY - GENERAL OR DERABLES Final Result [facility] HISTORICAL RESULTS from Last 3 Months or Most Recently Relevant to Health Maintenance Insurance [facility] CMR Care Teams Manager Ambulatory Relationship Specialty Start Date End Date Todd Nuñez MD [address] [place] [address] PCP - General 03/08/20 Todd Nuñez MD [address] [place], [place] [id number] Internal Medicine 03/07/19
[2024-07-24 11:08] VITALS: BP 160/81; PULSE 77; RESP 18; TEMP 36.2; O2SAT 100
[2024-07-24 11:16] LABS: EDUAAPPEAR Clear; EDUABILI Negative (Negative); EDUABLOOD Trace (Negative); EDUACOLOR1 Yellow; EDUAGLUCOSE Negative (Negative); EDUAKETONE Negative (Negative); EDUALEUKO Negative (Negative); EDUANITRATE Negative (Negative); EDUAPH 6.5; EDUAPROTEIN Negative (Negative); EDUAUROBILI 0.2
--- NOTE | 2024-07-24 11:24 | ED.FEMALEGU ---
HPI - Female Genitourinary General Chief complaint: Urogenital-Female Stated complaint: uti symptoms Time Seen by Provider: 07/24/24 11:16 Source: patient and RN notes reviewed Mode of arrival: ambulatory Limitations: no limitations History of Present Illness HPI Narrative: Patient presents today complaining of 3 day history of suprapubic pain and pressure, dysuria, frequency, with development of bilateral mid to low back pain. She has tried azo without relief. Related Data Home Medications ?Medication ?Instructions ?Recorded ?Confirmed ?Last Taken ?Type cetirizine 10 mg tablet (Zyrtec) 10 mg PO DAILY 08/23/22 03/08/24 Unknown History calcium 600 mg (as carbonate)-vit 1 tablet PO BID 02/10/23 03/08/24 Unknown History D3 20 mcg (800 unit) chewable tablet (Caltrate plus D) estradiol 1.25 gram/actuation 0.5 pump transdermal DAILY 09/01/23 03/08/24 Unknown History (0.06%) transdermal gel pump (EstroGel) fluticasone propionate 50 2 spray intranasal DAILY 02/08/24 03/08/24 Unknown History mcg/actuation nasal spray,suspension albuterol 90 mcg/actuation aerosol 90 mcg inhalation PRN PRN 02/27/24 03/08/24 Unknown History inhaler Shortness Of Breath Or Wheezing Allergies Allergy/AdvReac Type Severity Reaction Status Date / Time latex Allergy Mild Rash Verified 07/24/24 11:10 nirmatrelvir (From Paxlovid Allergy Mild Rash Verified 07/24/24 11:10 (EUA)) ritonavir (From Paxlovid Allergy Mild Rash Verified 07/24/24 11:10 (EUA)) milk AdvReac Intermediate Gastrointestinal Verified 07/24/24 11:10 Upset Molds and Smuts AdvReac Mild Rash Uncoded 03/08/24 07:57 Review of Systems Review of Systems: CONSTITUTIONAL: Denies body aches, fever, chills, or sweats. EYES: Denies visual changes, redness, or discharge. ENT: Denies rhinorrhea, congestion, sore throat, or otalgia. CARDIOVASCULAR: Denies chest pain, palpitations, or edema. RESPIRATORY: Denies cough or dyspnea. GASTROINTESTINAL: Denies nausea, vomiting, or diarrhea.+ suprapubic pain GENITOURINARY: + dysuria, frequency. SKIN: Denies rash, itching, or wounds. MUSCULOSKELETAL: Denies joint pain, or myalgia.+ bilateral low back pain NEUROLOGIC: Denies headache, numbness, tingling, or weakness. PSYCH: Denies depression or anxiety. [facility] Past Medical History Medical History Osteopenia Lumbar spondylosis Family History Family History Mother Family history of malignant neoplasm Family history of diabetes mellitus in first degree relative Social History Social History Smoking status: Never smoker Second hand tobacco smoke exposure: No Alcohol intake: current Drinks per week: 4 Alcohol use details: social Substance use: never Substance use type: does not use Do You Feel Safe in your Home?: Yes Lack of Transportation: No Lack of Food: Never True Current Housing: I Have Housing Concerned About Future Housing: No Difficulty Paying Gas/Electric Bills: No Difficulty Paying for Meds: No Currently Unemployed: No Education: Trade/Vocational Certificate Difficulty w/ Childcare or Family Care: No Living arrangements: with family Occupation/Education: occupation Gender identity (if verbalized by the patient): Female Sexual Orientation (if Verbalized by the Patient): Straight or Heterosexual Spiritual care concerns: No Agree to blood products: Yes Comments At time of signature, I have reviewed and agree with nursing past medical, surgical, social and family history unless otherwise noted. Please see nursing chart for further information. There is no relevant family history pertinent to the presenting complaint Exam Narrative: GENERAL: Well-appearing, well-nourished, and in no acute distress. HEAD: Normocephalic, atraumatic. EYES: EOMI. No redness or drainage. Conjunctivae normal. ENT: Mucous membranes pink and moist. NECK: Normal AROM. CHEST: No respiratory distress. Clear to auscultation. HEART: Regular rate and rhythm. No murmur appreciated. Normal peripheral pulses. ABDOMEN: Soft, nondistended, normal active bowel sounds.+ suprapubic tenderness without rebound or guarding.-CVAT MUSCULOSKELETAL: No bony tenderness. EXTREMITIES: Normal range of motion. No edema. SKIN: Warm, dry, no rash. Capillary refill normal. Normal skin turgor. NEURO: No focal deficits. Alert and oriented x3. Gait steady. PSYCH: Normal affect. No signs of depression or anxiety. Course Course Level of Care: Express Care Visit Vital Signs Vital signs: Vital Signs Temperature 97.2 F L 07/24/24 11:08 Pulse Rate 77 07/24/24 11:08 Respiratory Rate 18 07/24/24 11:08 Blood Pressure 160/81 H 07/24/24 11:08 Pulse Oximetry 100 07/24/24 11:08 Oxygen Delivery Room Air 07/24/24 11:08 Temperature 97.2 F L 07/24/24 11:08 Pulse Rate 77 07/24/24 11:08 Respiratory Rate 18 07/24/24 11:08 Blood Pressure 160/81 H 07/24/24 11:08 Pulse Oximetry 100 07/24/24 11:08 Oxygen Delivery Room Air 07/24/24 11:08 Reviewed MDM - Female Genitourinary MDM Narrative Medical decision making narrative: Urinalysis shows trace blood. Patient has history of hysterectomy. Will treat with course of Keflex for UTI as well as short course of Pyridium anticipatory guidance and ED precautions given. Differential Diagnosis Differential diagnosis: Likely urinary tract infection, vaginitis, cystitis and other (Pyelonephritis) Lab Data Attestation: I reviewed the patient's lab results. Labs: Lab Results 07/24/24 Range/Units 11:14 POC Urine Color Yellow POC Urine Clarity Clear POC Urine pH 6.5 POC Ur Specif [place] 1.010 POC Urine Protein Negative (Negative) POC Ur Glucose (UA) Negative (Negative) POC Urine Ketones Negative (Negative) POC Urine Blood Trace (Negative) POC Urine Nitrite Negative (Negative) POC Urine Bilirubin Negative (Negative) POC Urine Urobilinogen 0.2 POC U Leukocyte Esteras Negative (Negative) Critical Care Time Critical Care Time Critical Care Time: No Discharge Plan Discharge Clinical Impression: UTI (urinary tract infection) Patient Disposition: Home, Self-Care Condition: Stable Instructions: Antibiotic Form, Urinary Tract Infection in Women (DC) Additional Instructions: Your urine shows blood today. Take Keflex as prescribed until gone. Your urine will be sent of for a culture to identify what type of bacteria is causing your infection. If the culture shows that your medication will not get rid of your infection, you will be notified and a new antibiotic will be called in for you. If your symptoms worsen to include fever, sweats, chills, nausea, vomiting, severe abdominal or back pain, please go to the ER for further evaluation. Your blood pressure was elevated above 120/80 today at Urgent Care. This puts you above the threshold for follow up. Please schedule a followup visit with your personal physician as soon as possible, for further evaluation and treatment. Even blood pressure exceeding 120/80 may indicate pre-hypertension. Patient Language: Slovak Prescriptions: New cephalexin 500 mg capsule 500 mg PO Q6H 7 Days Qty: 28 0RF phenazopyridine [Pyridium] 200 mg tablet 200 mg PO TID PRN (Reason: pain) Qty: 6 0RF No Action cetirizine [Zyrtec] 10 mg Tablet 10 mg PO DAILY albuterol 90 mcg/actuation Aerosol 90 mcg INHALATION PRN PRN (Reason: Shortness Of Breath Or Wheezing) Caltrate 600 plus D 600 mg-20 mcg (800 unit) tablet,chewable 1 tablet PO BID EstroGel 1.25 gram/actuation gel in metered-dose pump 0.5 pump TRANSDERM DAILY fluticasone propionate 50 mcg/actuation spray,suspension 2 spray intranasal DAILY Rx Instructions: administer into each nostril meclizine 12.5 mg tablet See Rx Instructions PO TID PRN (Reason: dizziness) Qty: 60 0RF Rx Instructions: 1 tab orally three times a day PRN; May do 2 if severe Follow-up/Referrals: Natali Cooper APRN [Primary Care Provider] - Time of Disposition: 11:28
== END 2024-07-24 11:30 | disposition home or self-care (01) ==
PROVIDERS: Emergency Provider Nurse Practitioner; PCP Nurse Practitioner Family
DX: N39.0 Urinary tract infection, site not specified (principal); M85.80 Other specified disorders of bone density and structure, unspecified site; M47.816 Spondylosis without myelopathy or radiculopathy, lumbar region
CPT/HCPCS: 81003; 87086; 99213; G0463

== ENCOUNTER 2024-07-31 12:40 | Emergency (ER) | payer OTHER, SELFPAY ==
--- OUTSIDE RECORDS SUMMARY | 2024-07-31 12:57 | XMS_ITS | Clinical Summary ---
Author Organization [facility] Care Team Providers Care Political Worker Name Role Phone Unavailable Primary Care Provider Unavailabl e Social History Tobacco Use Types Packs/Day Years Used Date Smoking Tobacco: Never Assessed Comments Unknown Sex and Gender Information Value Date Recorded Sex Assigned at Not on file Legal Sex Female 1:45 PM [employer] Gender Identity Not on file Sexual Orientation [...]
--- OUTSIDE RECORDS SUMMARY | 2024-07-31 12:57 | XMS_ITS | Referral Summary ---
Author Organization [facility] [address] Address [address] [place] [address] Care Team Providers Care Front Office Specialist Name Role Phone Todd Nuñez MD Primary Care Provider [phone] Todd Nuñez MD Unavailable Encounters Date Type Department Care Team Description 06/06/[address] [facility] Specialty Services [address] [place] [phone] Sarah Campbell, JAMES GI PROCEDURE 3 DAY PRE CALL 06/01/2024 Telephone [facility] Gastroenterology [address] [place] [address] Advanced Medicine [facility] Floor [address] [place] [address] Sarah Vera, SOLUTION DEVELOPER 05/31/2024 Telephone [facility] Gastroenterology [address] [place] [address] Advanced Medicine [facility] Floor [address] [place] [address] Mackenzie Perez from Last 3 [...] 04/18/2024 Assessment & Plan (04/18/2024 11:29 AM ANODISER): Ms. Almaraz is a 54 y.o. female [...] on file Legal Sex Female 12:28 PM ANODISER Gender Identity Not on file Sexual Orientation Not on file Last Filed Vital Signs Vital Sign Reading Time Taken Comments Blood Pressure 145/89 04/18/2024 8:40 AM ANODISER Pulse 71 04/18/2024 8:40 AM ANODISER Temperature 36.5 C (97.7 F) 04/18/2024 8:40 AM ANODISER Respiratory Rate 17 02/27/2024 3:30 PM CDT Oxygen Saturation 99% 04/18/2024 8:40 AM ANODISER Inhaled Oxygen Concentration - - Weight 72.6 kg (160 lb) 04/18/2024 8:40 AM ANODISER Height 170.2 cm (5' 7 ) 04/18/2024 8:40 AM ANODISER Body Mass Index 25.06 04/18/2024 8:40 AM ANODISER Plan of Treatment Not on file Procedures [...] Date: 03/08/20927 Age: 50 Sex: Female MR#: [id number] Loc: RADIOLOGY REPORT Order #[id number] [facility] Porfirio Bilat Screening 3D Signed - [...] made to exams dated: 09/11/2017 mammogram - [facility], 06/10/2016 mammogram, and 05/05/2014 mammogram - [place]. BREAST TISSUE: There are scattered areas of [...] age 40, based on guidelines of the [employer] (ACR Practice Parameter for the Performance of Screening and Diagnostic Mammography) and [employer]. For women with an elevated risk of breast cancer, please refer to the ACR Practice Parameter for specific screening recommendations. The patient will be entered into a reminder system with a target due date of 1 year for her next screening exam. Electronically signed by: Ilia castillo/mandeep:03/08/2020 11:36:31 Video Machines Mechanic: Chelo Etienne, [facility] letter sent: Normal Exam Reading location: BI-RADS: 1 Negative REPORT ELECTRONICALLY SIGNED IN OTHER VENDOR SYSTEM Resulting Agency Comment O Procedure Note Ilia Blank MD - 03/08/2020 Patient Name: TAMEKA LEPE Dr: Ninfa Dawson MDO.B: 1970 Exam Date: 03/08/20927 Age: 50 Sex: Female MR#: [id number] Loc: RADIOLOGY REPORT Order #[id number] [facility] Porfirio Bilat Screening 3D Signed - [...] is made to exams dated: 09/11/2017 mammogram -[facility], 06/10/2016 mammogram, and 05/05/2014 mammogram -[facility] [facility]. BREAST TISSUE: There are scattered areas of [...] age 40, based on guidelines of the [employer] (ACR Practice Parameter for the Performance of Screening and Diagnostic Mammography) and [employer]. For women with an elevated risk of breast cancer, pleaserefer to the ACR Practice Parameter for specific screening recommendations. The patient will be entered into a reminder system with a target due dateof 1 year for her next screening exam. Electronically signed by: Ilia castillo/mandeep:03/08/2020 11:36:31 Video Machines Mechanic: Chelo Etienne, [facility] letter sent: Normal Exam Reading location: BI-RADS: 1 Negative REPORT ELECTRONICALLY SIGNED IN OTHER VENDOR SYSTEM us Ninfa Angulo MD [facility] MAMMO PROCEDURES Aida l Result * Hepatitis C antibody (02/12/2018 3:35 PM CDT) Hep C Ab NONREACT NONREACTIVE Comment: Siemens JpwholesaleaurXP using ELIN (chemiluminescent immunoassay) technology. NONREACTIVE: Antibodies [...] MICROBIOLOGY - GENERAL OR DERABLES Final Result [facility] HISTORICAL RESULTS from Last 3 Months or Most Recently Relevant to Health Maintenance Insurance [facility] CMR [facility] CMR [facility] CMR Care Teams Front Office Specialist Relationship Specialty Start Date End Date Todd Nuñez MD [address] [place] [address] PCP - General 03/08/20 Todd Nuñez MD [address] [place] [address] Internal Medicine 03/07/19
--- OUTSIDE RECORDS SUMMARY | 2024-07-31 12:57 | XMS_ITS | Clinical Summary ---
Author Organization [facility] Address [facility] [place] [address] Care Team Providers Care Editor Publications Name Role Phone Todd Nuñez MD Primary Care Provider [phone] Allergies Active Allergy Reactions Criticality Noted Date [...] Comments Blood Pressure 148/93 07/07/2019 4:41 PM DRAFTER SEISMOGRAPH Pulse 106 07/07/2019 4:41 PM DRAFTER SEISMOGRAPH Temperature 36.7 C (98.1 F) 07/07/2019 4:41 PM DRAFTER SEISMOGRAPH Respiratory Rate 20 07/07/2019 4:41 PM DRAFTER SEISMOGRAPH Oxygen Saturation 99% 07/07/2019 4:41 PM DRAFTER SEISMOGRAPH Inhaled Oxygen Concentration - - Weight 69.4 kg (153 lb) 07/07/2019 4:41 PM DRAFTER SEISMOGRAPH Height 172.7 cm (5' 8 ) 07/07/2019 4:41 PM DRAFTER SEISMOGRAPH Body Mass Index 23.26 07/07/2019 4:41 PM DRAFTER SEISMOGRAPH Plan of Treatment Health Maintenance Due Date [...] patient's age to complete this topic Insurance [facility] Care Teams Editor Publications Relationship Specialty Start Date End Date Todd Nuñez MD [address] [place] [address] PCP - General INTERNAL MEDICINE 07/07/19
--- OUTSIDE RECORDS SUMMARY | 2024-07-31 12:57 | XMS_ITS | Clinical Summary ---
Author Organization [facility] [address] [place] [address] Care Team Providers Care Model Artists' Name Role Phone Todd Nuñez MD Primary Care Provider [phone] Todd Nuñez MD Unavailable Allergies Active Allergy [...] 04/18/2024 Assessment & Plan (04/18/2024 11:29 AM MEDICAL SALES CONSULTANT): Ms. Almaraz is a 54 y.o. female [...] Type Department Care Team Description 06/06/2024 Telephone [facility] Specialty Services [address] [place] [phone] Sarah Campbell, JAMES GI PROCEDURE 3 DAY PRE CALL 06/01/2024 Telephone [facility] Gastroenterology [facility] Medicine [address]th [place] [address] [place] [address] Sarah Vera CMA 05/31/2024 Telephone [facility] Gastroenterology [facility] Medicine [address]th [place] [address] [place] [address] Mackenzie Perez from Last 3 Months Surgical History Surgery Date Site/Laterality Comments TONSILLECTOMY HYSTERECTOMY W/ BILATERAL SALPINGOOPHORECTOMY 06/11/2013 - 07/08/2013 [facility] LAPAROSCOPIC CHOLECYSTECTOMY 06/11/2013 - 07/08/2013 along with [...] on file Legal Sex Female 12:28 PM MEDICAL SALES CONSULTANT Gender Identity Not on file Sexual Orientation Not on file Obstetrics History Para Term AB IAB SAB Ectopic Multiple Livin g Live Births 0 0 0 0 0 0 0 0 0 0 0 Last Filed Vital Signs Vital Sign Reading Time Taken Comments Blood Pressure 145/89 04/18/2024 8:40 AM MEDICAL SALES CONSULTANT Pulse 71 04/18/2024 8:40 AM MEDICAL SALES CONSULTANT Temperature 36.5 C (97.7 F) 04/18/2024 8:40 AM MEDICAL SALES CONSULTANT Respiratory Rate 17 02/27/2024 3:30 PM CDT Oxygen Saturation 99% 04/18/2024 8:40 AM MEDICAL SALES CONSULTANT Inhaled Oxygen Concentration - - Weight 72.6 kg (160 lb) 04/18/2024 8:40 AM MEDICAL SALES CONSULTANT Height 170.2 cm (5' 7 ) 04/18/2024 8:40 AM MEDICAL SALES CONSULTANT Body Mass Index 25.06 04/18/2024 8:40 AM MEDICAL SALES CONSULTANT Plan of Treatment Health Maintenance Due Date [...] Date: 03/08/20927 Age: 50 Sex: Female MR#: [id number] Loc: RADIOLOGY REPORT Order #[id number] [facility] Porfirio Bilat Screening 3D Signed - MG [...] made to exams dated: 09/11/2017 mammogram - [facility], 06/10/2016 mammogram, and 05/05/2014 mammogram - [place]. BREAST TISSUE: There are scattered areas of [...] age 40, based on guidelines of the [employer] (ACR Practice Parameter for the Performance of Screening and Diagnostic Mammography) and [place]. For women with an elevated risk of breast cancer, please refer to the ACR Practice Parameter for specific screening recommendations. The patient will be entered into a reminder system with a target due date of 1 year for her next screening exam. Electronically signed by: Ilia castillo/mandeep:03/08/2020 11:36:31 Drop Wire Aligner: Chelo Etienne, [facility] letter sent: Normal Exam Reading location: BI-RADS: 1 Negative REPORT ELECTRONICALLY SIGNED IN OTHER VENDOR SYSTEM Resulting Agency Comment O Procedure Note Ilia Blank MD - 03/08/2020 Patient Name: ACE LEPE Dr: Ninfa Dawson MD D.O.B: 1970 Exam Date: 03/08/2028 Age: 50 Sex: Female MR#: [id number] Loc: RADIOLOGY REPORT Order #[id number] [facility] Porfirio Bilat Screening 3D Signed - MG [...] is made to exams dated: 09/11/2017 mammogram -[facility], 06/10/2016 mammogram, and 05/05/2014 mammogram -[place]. BREAST TISSUE: There are scattered areas of [...] age 40, based on guidelines of the [employer] [employer] (ACR Practice Parameter for the Performance of Screening and Diagnostic Mammography) and [employer]. For women with an elevated risk of breast cancer, pleaserefer to the ACR Practice Parameter for specific screening recommendations. The patient will be entered into a reminder system with a target due dateof 1 year for her next screening exam. Electronically signed by: Ilia Jolley rl/mandeep:03/08/2020 11:36:31 Drop Wire Aligner: Chelo Etienne, [facility] letter sent: Normal Exam Reading location: BI-RADS: 1 Negative REPORT ELECTRONICALLY SIGNED IN OTHER VENDOR SYSTEM us Ninfa Angulo MD IMG MAMMO PROCEDURES Aida l Result * Hepatitis C antibody (02/12/2018 3:35 PM CDT) Hep C Ab NONREACT NONREACTIVE 02/12/2018 8:03 PM CDT [facility] HISTORICAL RESULTS Comment: Siemens CentaurXP using ELIN (chemiluminescent immunoassay) [...] MICROBIOLOGY - GENERAL OR DERABLES Final Result [facility] HISTORICAL RESULTS from Last 3 Months or Most Recently Relevant to Health Maintenance Insurance [facility] CMR Care Teams Model Artists' Relationship Specialty Start Date End Date Todd Nuñez MD [address] [place] [address] PCP - General 03/08/20 Todd Nuñez MD [address] [place], [place] [id number] Internal Medicine 03/07/19
[2024-07-31 13:10] VITALS: BP 146/89; PULSE 68; RESP 20; TEMP 36.8; O2SAT 100
--- NOTE | 2024-07-31 13:18 | ED_ITS ---
HPI - Female Genitourinary General Chief complaint: Urogenital-Female Stated complaint: UTI Time Seen by Provider: 07/31/24 13:18 Source: patient and RN notes reviewed Mode of arrival: ambulatory Limitations: no limitations History of Present Illness HPI Narrative: 54-year-old female presents with concern for dysuria, back pain, abdominal pressure suprapubic pressure and nausea. She reports she was here 1 week ago for similar symptoms and was treated with cephalexin. She reports the cephalexin did not treat her symptoms, and they have worsened. She is trying to find the urologist. MD elicited complaint: UTI Related Data Home Medications ?Medication ?Instructions ?Recorded ?Confirmed ?Last Taken ?Type cetirizine 10 mg tablet (Zyrtec) 10 mg PO DAILY 08/23/22 03/08/24 Unknown History calcium 600 mg (as carbonate)-vit 1 tablet PO BID 02/10/23 03/08/24 Unknown History D3 20 mcg (800 unit) chewable tablet (Caltrate plus D) estradiol 1.25 gram/actuation 0.5 pump transdermal DAILY 09/01/23 03/08/24 Unknown History (0.06%) transdermal gel pump (EstroGel) fluticasone propionate 50 2 spray intranasal DAILY 02/08/24 03/08/24 Unknown History mcg/actuation nasal spray,suspension albuterol 90 mcg/actuation aerosol 90 mcg inhalation PRN PRN 02/27/24 03/08/24 Unknown History inhaler Shortness Of Breath Or Wheezing Allergies Allergy/AdvReac Type Severity Reaction Status Date / Time latex Allergy Mild Rash Verified 07/24/24 11:10 nirmatrelvir (From Paxlovid Allergy Mild Rash Verified 07/24/24 11:10 (EUA)) ritonavir (From Paxlovid Allergy Mild Rash Verified 07/24/24 11:10 (EUA)) milk AdvReac Intermediate Gastrointestinal Verified 07/24/24 11:10 Upset Molds and Smuts AdvReac Mild Rash Uncoded 03/08/24 07:57 Review of Systems Review of Systems: CONSTITUTIONAL: Denies malaise, chills, sweats, or fever. CARDIOVASCULAR: Denies chest pain, palpitations, or edema. RESPIRATORY: Denies cough or dyspnea. GASTROINTESTINAL: Denies abdominal pain, vomiting, diarrhea. Reports nausea GENITOURINARY: Reports dysuria, frequency, urgency, suprapubic pressure. Denies flank pain or hematuria. SKIN: Denies rash or itching. MUSCULOSKELETAL: Reports back pain All systems reviewed & are unremarkable except as noted in HPI and below PMFSH Past Medical History Medical History Osteopenia Lumbar spondylosis Family History Family History Mother Family history of malignant neoplasm Family history of diabetes mellitus in first degree relative Social History Social History Smoking status: Never smoker Second hand tobacco smoke exposure: No Alcohol intake: current Drinks per week: 4 Alcohol use details: social Substance use: never Substance use type: does not use Do You Feel Safe in your Home?: Yes Lack of Transportation: No Lack of Food: Never True Current Housing: I Have Housing Concerned About Future Housing: No Difficulty Paying Gas/Electric Bills: No Difficulty Paying for Meds: No Currently Unemployed: No Education: Trade/Vocational Certificate Difficulty w/ Childcare or Family Care: No Living arrangements: with family Occupation/Education: occupation Gender identity (if verbalized by the patient): Female Sexual Orientation (if Verbalized by the Patient): Straight or Heterosexual Spiritual care concerns: No Agree to blood products: Yes Comments At time of signature, agree with nursing past medical, surgical, social and family history. There is no relevant family history pertinent to the presenting complaint Exam Narrative: GENERAL: Well-appearing, well-nourished, and in no acute distress. HEAD: Normocephalic. EYES: PERRLA, conjunctivae clear. NECK: Supple. No lymphadenopathy CHEST: Clear to auscultation. No respiratory distress. HEART: Regular rate and rhythm. ABDOMEN: Soft, suprapubic tenderness, nondistended, normal active bowel sounds, no palpable or pulsatile masses, no guarding. Bilateral CVA tenderness SKIN: Warm, dry, no rash. NEURO: Alert and oriented x3. PSYCH: Normal mood and affect Course Course Emergency Course: Patient is aware of diagnosis, understands and agrees to treatment plan. Anticipatory guidance given. Patient agrees to follow-up as directed and is aware of reasons to seek care at the emergency department. Portions of this record may have been created with voice recognition software Level of Care: Express Care Visit Vital Signs Vital signs: Vital Signs Temperature 98.2 F 07/31/24 13:10 Pulse Rate 68 07/31/24 13:10 Respiratory Rate 20 07/31/24 13:10 Blood Pressure 146/89 H 07/31/24 13:10 Pulse Oximetry 100 07/31/24 13:10 Oxygen Delivery Room Air 07/31/24 13:10 Temperature 98.2 F 07/31/24 13:10 Pulse Rate 68 07/31/24 13:10 Respiratory Rate 20 07/31/24 13:10 Blood Pressure 146/89 H 07/31/24 13:10 Pulse Oximetry 100 07/31/24 13:10 Oxygen Delivery Room Air 07/31/24 13:10 Reviewed. MDM - Female Genitourinary MDM Narrative Medical decision making narrative: Exam findings and UA show no acute concerns or changes; patient is non-toxic ap pearing and is in no distress. Patient is appropriate for outpatient treatment and follow-up. Differential Diagnosis Differential diagnosis: Likely urinary tract infection and cystitis Critical Care Time Critical Care Time Critical Care Time: No Discharge Plan Discharge Clinical Impression: Dysuria Patient Disposition: Home, Self-Care Condition: Stable Instructions: Foot Fracture in Adults (ED) Additional Instructions: Please rest, ice and elevate the affected extremity. Please take Motrin 600mg every 8 hours, as needed, for pain (take with food). Follow up with Orthopedic Surgery in 1-2 days for further evaluation - please call for an appointment. Keep cast clean, dry and on. Please use garbage bag while showering to keep cast dry. Use sling/crutches. Please go to ER immediately for increased pain, tingling/numbness, swelling, redness, and fever Patient Language: [place] Island[place] Prescriptions: New sulfamethoxazole-trimethoprim 800-160 mg tablet 1 tablet PO Q12H 7 Days Qty: 14 0RF No Action cetirizine [Zyrtec] 10 mg Tablet 10 mg PO DAILY albuterol 90 mcg/actuation Aerosol 90 mcg INHALATION PRN PRN (Reason: Shortness Of Breath Or Wheezing) cephalexin 500 mg capsule 500 mg PO Q6H 7 Days Qty: 28 0RF phenazopyridine [Pyridium] 200 mg tablet 200 mg PO TID PRN (Reason: pain) Qty: 6 0RF Caltrate 600 plus D 600 mg-20 mcg (800 unit) tablet,chewable 1 tablet PO BID EstroGel 1.25 gram/actuation gel in metered-dose pump 0.5 pump TRANSDERM DAILY fluticasone propionate 50 mcg/actuation spray,suspension 2 spray intranasal DAILY Rx Instructions: administer into each nostril meclizine 12.5 mg tablet See Rx Instructions PO TID PRN (Reason: dizziness) Qty: 60 0RF Rx Instructions: 1 tab orally three times a day PRN; May do 2 if severe Follow-up/Referrals: Stefany Cade MD [Physician] - Natali Cooper APRN [Primary Care Provider] - Time of Disposition: 13:25
[2024-07-31 13:22] LABS: EDUAAPPEAR Clear; EDUABILI Negative (Negative); EDUABLOOD 1+ (Negative); EDUACOLOR1 Yellow; EDUAGLUCOSE Negative (Negative); EDUAKETONE Negative (Negative); EDUALEUKO Negative (Negative); EDUANITRATE Negative (Negative); EDUAPH 5.5; EDUAPROTEIN Negative (Negative); EDUASPGRAVITY 1.025; EDUAUROBILI 0.2
== END 2024-07-31 13:47 | disposition home or self-care (01) ==
PROVIDERS: Emergency Provider Nurse Practitioner; PCP Nurse Practitioner Family
DX: R30.0 Dysuria (principal); M85.80 Other specified disorders of bone density and structure, unspecified site; M47.816 Spondylosis without myelopathy or radiculopathy, lumbar region
CPT/HCPCS: 81003; 87086; 99213; G0463

== ENCOUNTER 2024-08-12 07:44 | Outpatient (CLI) | payer OTHER, SELFPAY ==
--- NOTE | ~2024-08-12 | MM_ITS ---
EXAMINATION: MM screening shanice BI w virginie HISTORY: Screening TECHNIQUE: Craniocaudal and mediolateral oblique 3-D tomosynthesis images were obtained and synthetic 2-D images were generated. CAD analysis was submitted and interpreted. COMPARISON: Comparison to multiple prior studies sequentially, with oldest reviewed study dated 03/11. BREAST PARENCHYMAL COMPOSITION: Not dense: There are scattered areas of fibroglandular density. FINDINGS: There is no evidence of suspicious mass, calcification, or architectural distortion to sugg est malignancy in either breast. There has been no suspicious interval change. IMPRESSION: 1. No mammographic evidence of malignancy. 2. Recommend routine screening mammography in one year. BI-RADS Category 1: Negative Reviewed, dictated and finalized at location A.
--- OUTSIDE RECORDS SUMMARY | 2024-08-12 07:49 | XMS_ITS | Clinical Summary ---
Author Organization [facility] Address [place] [address] Care Team Providers Care Die Reamer Name Role Phone Todd Nuñez MD Primary Care Provider [phone] Allergies Active Allergy Reactions Criticality Noted Date [...] Comments Blood Pressure 148/93 07/07/2019 4:41 PM MANAGER INPATIENT Pulse 106 07/07/2019 4:41 PM MANAGER INPATIENT Temperature 36.7 C (98.1 F) 07/07/2019 4:41 PM MANAGER INPATIENT Respiratory Rate 20 07/07/2019 4:41 PM MANAGER INPATIENT Oxygen Saturation 99% 07/07/2019 4:41 PM MANAGER INPATIENT Inhaled Oxygen Concentration - - Weight 69.4 kg (153 lb) 07/07/2019 4:41 PM MANAGER INPATIENT Height 172.7 cm (5' 8 ) 07/07/2019 4:41 PM MANAGER INPATIENT Body Mass Index 23.26 07/07/2019 4:41 PM MANAGER INPATIENT Plan of Treatment Health Maintenance Due Date [...] patient's age to complete this topic Insurance [facility] Care Teams Die Reamer Relationship Specialty Start Date End Date Todd Nuñez MD [address] [place] [address] PCP - General INTERNAL MEDICINE 07/07/19
--- OUTSIDE RECORDS SUMMARY | 2024-08-12 07:49 | XMS_ITS | Referral Summary ---
Author Organization [facility] [address] Address [address] [place] [address] Care Team Providers Care Regional Account Manager Name Role Phone Todd Nuñez MD Primary Care Provider [phone] Todd Nuñez MD Unavailable Encounters Date Type Department Care Team Description 06/06/2024 Telephone [facility] Specialty Services [address] [place] [phone] Sarah Campbell, JAMES GI PROCEDURE 3 DAY PRE CALL 06/01/2024 Telephone [facility] Gastroenterology [address] [place] [address] [facility] [place] [address] [place] [address] Sarah Vera, GUEST RELATIONS REPRESENTATIVE 05/31/2024 Telephone [facility] Gastroenterology [address] [place] [address] [facility] [place] [address] [place] [address] Mackenzie Perez from Last 3 [...] 04/18/2024 Assessment & Plan (04/18/2024 11:29 AM BUSINESS ANALYTICS MANAGER): Ms. Almaraz is a 54 y.o. female [...] on file Legal Sex Female 12:28 PM BUSINESS ANALYTICS MANAGER Gender Identity Not on file Sexual Orientation Not on file Last Filed Vital Signs Vital Sign Reading Time Taken Comments Blood Pressure 145/89 04/18/2024 8:40 AM BUSINESS ANALYTICS MANAGER Pulse 71 04/18/2024 8:40 AM BUSINESS ANALYTICS MANAGER Temperature 36.5 C (97.7 F) 04/18/2024 8:40 AM BUSINESS ANALYTICS MANAGER Respiratory Rate 17 02/27/2024 3:30 PM CDT Oxygen Saturation 99% 04/18/2024 8:40 AM BUSINESS ANALYTICS MANAGER Inhaled Oxygen Concentration - - Weight 72.6 kg (160 lb) 04/18/2024 8:40 AM BUSINESS ANALYTICS MANAGER Height 170.2 cm (5' 7 ) 04/18/2024 8:40 AM BUSINESS ANALYTICS MANAGER Body Mass Index 25.06 04/18/2024 8:40 AM BUSINESS ANALYTICS MANAGER Plan of Treatment Not on file Procedures [...] Date: 03/08/20927 Age: 50 Sex: Female MR#: [id number] Loc: RADIOLOGY REPORT Order #[id number] [facility] Porfirio Bilat Screening 3D Signed - [...] made to exams dated: 09/11/2017 mammogram - [facility], 06/10/2016 mammogram, and 05/05/2014 mammogram - [place]. BREAST TISSUE: There are scattered areas of [...] age 40, based on guidelines of the [place] [employer] (ACR Practice Parameter for the Performance of Screening and Diagnostic Mammography) and [place] [employer] of Obstetricians and Gynecologists. For women with an elevated risk of breast cancer, please refer to the ACR Practice Parameter for specific screening recommendations. The patient will be entered into a reminder system with a target due date of 1 year for her next screening exam. Electronically signed by: Ilia castillo/mandeep:03/08/2020 11:36:31 Numerical Control Machine Machinist: Chelo Etienne, [facility] letter sent: Normal Exam Reading location: BI-RADS: 1 Negative REPORT ELECTRONICALLY SIGNED IN OTHER VENDOR SYSTEM Resulting Agency Comment O Procedure Note Ilia Blank MD - 03/08/2020 Patient Name: TAMEKA LEPE Dr: Ninfa Dawson MDO.B: 1970 Exam Date: 03/08/20927 Age: 50 Sex: Female MR#: [id number] Loc: RADIOLOGY REPORT Order #[id number] [facility] Porfirio Bilat Screening 3D Signed - [...] is made to exams dated: 09/11/2017 mammogram -[facility], 06/10/2016 mammogram, and 05/05/2014 mammogram -[place]. BREAST TISSUE: There are scattered areas of [...] age 40, based on guidelines of the [place] [employer] (ACR Practice Parameter for the Performance of Screening and Diagnostic Mammography) and [place] [employer] Obstetricians and Gynecologists. For women with an elevated risk of breast cancer, pleaserefer to the ACR Practice Parameter for specific screening recommendations. The patient will be entered into a reminder system with a target due dateof 1 year for her next screening exam. Electronically signed by: Ilia castillo/mandeep:03/08/2020 11:36:31 Numerical Control Machine Machinist: Chelo Etienne, [facility] letter sent: Normal Exam Reading location: BI-RADS: 1 Negative REPORT ELECTRONICALLY SIGNED IN OTHER VENDOR SYSTEM us Ninfa Angulo MD [facility] MAMMO PROCEDURES Aida l Result * Hepatitis C antibody (02/12/2018 3:35 PM CDT) Hep C Ab NONREACT NONREACTIVE 02/12/2018 8:[address] [facility] HISTORICAL RESULTS Comment: Siemens JMB EnergieaurXP using ELIN (chemiluminescent immunoassay) technology. NONREACTIVE: Antibodies [...] MICROBIOLOGY - GENERAL OR DERABLES Final Result [facility] HISTORICAL RESULTS from Last 3 Months or Most Recently Relevant to Health Maintenance Insurance [facility] Care Teams Regional Account Manager Relationship Specialty Start Date End Date Todd Nuñez MD [address] [place] [address] PCP - General 03/08/20 Todd Nuñez MD [address] [place] [address] Internal Medicine 03/07/19
--- OUTSIDE RECORDS SUMMARY | 2024-08-12 07:49 | XMS_ITS | Clinical Summary ---
Author Organization [facility] Care Team Providers Care Rotor Blade Installer Name Role Phone Unavailable Primary Care Provider Unavailabl e Social History Tobacco Use Types Packs/Day Years Used Date Smoking Tobacco: Never Assessed Comments Unknown Sex and Gender Information Value Date Recorded Sex Assigned at Not on file Legal Sex Female 1:45 PM LITHOGRAPH PRESS OPERATOR TINWARE Gender Identity Not on file Sexual Orientation [...]
--- OUTSIDE RECORDS SUMMARY | 2024-08-12 07:49 | XMS_ITS | Clinical Summary ---
Author Organization [facility] [address] Address [address] [place] [address] Care Team Providers Care Django Developer Name Role Phone Todd Nuñez MD Primary Care Provider [phone] Todd Nuñez MD Unavailable Allergies Active Allergy [...] 04/18/2024 Assessment & Plan (04/18/2024 11:29 AM PROCESS CONTROLS TECHNICIAN): Ms. Almaraz is a 54 y.o. female [...] Type Department Care Team Description 06/06/2024 Telephone [facility] Specialty Services [address] [place] [phone] Sarah Campbell, JAMES GI PROCEDURE 3 DAY PRE CALL 06/01/2024 Telephone [facility] Gastroenterology [facility] Medicine [address]th [place] [address] [place] [address] Sarah Vera CMA 05/31/2024 Telephone [facility] Gastroenterology [facility] Medicine [address]th [place] [address] [place] [address] Mackenzie Perez from Last 3 Months Surgical History Surgery Date Site/Laterality Comments TONSILLECTOMY HYSTERECTOMY W/ BILATERAL SALPINGOOPHORECTOMY 06/11/2013 - 07/08/[address] [facility] LAPAROSCOPIC CHOLECYSTECTOMY 06/11/2013 - 07/08/2013 along with [...] on file Legal Sex Female 12:28 PM PROCESS CONTROLS TECHNICIAN Gender Identity Not on file Sexual Orientation Not on file Obstetrics History Para Term AB IAB SAB Ectopic Multiple Livin g Live Births 0 0 0 0 0 0 0 0 0 0 0 Last Filed Vital Signs Vital Sign Reading Time Taken Comments Blood Pressure 145/89 04/18/2024 8:40 AM PROCESS CONTROLS TECHNICIAN Pulse 71 04/18/2024 8:40 AM PROCESS CONTROLS TECHNICIAN Temperature 36.5 C (97.7 F) 04/18/2024 8:40 AM PROCESS CONTROLS TECHNICIAN Respiratory Rate 17 02/27/2024 3:30 PM CDT Oxygen Saturation 99% 04/18/2024 8:40 AM PROCESS CONTROLS TECHNICIAN Inhaled Oxygen Concentration - - Weight 72.6 kg (160 lb) 04/18/2024 8:40 AM PROCESS CONTROLS TECHNICIAN Height 170.2 cm (5' 7 ) 04/18/2024 8:40 AM PROCESS CONTROLS TECHNICIAN Body Mass Index 25.06 04/18/2024 8:40 AM PROCESS CONTROLS TECHNICIAN Plan of Treatment Health Maintenance Due Date [...] Date: 03/08/20927 Age: 50 Sex: Female MR#: [id number] Loc: RADIOLOGY REPORT Order #[id number] [facility] Porfirio Bilat Screening 3D Signed [...] made to exams dated: 09/11/2017 mammogram - [facility], 06/10/2016 mammogram, and 05/05/2014 mammogram - [place]. BREAST TISSUE: There are scattered areas of [...] age 40, based on guidelines of the [place] [employer] (ACR Practice Parameter for the Performance of Screening and Diagnostic Mammography) and [place] [employer]stetricians and Gynecologists. For women with an elevated risk of breast cancer, please refer to the ACR Practice Parameter for specific screening recommendations. The patient will be entered into a reminder system with a target due date of 1 year for her next screening exam. Electronically signed by: Ilia castillo/mandeep:03/08/2020 11:36:31 Ostomy Care Nurse: Chelo Etienne, [facility] letter sent: Normal Exam Reading location: BI-RADS: 1 Negative REPORT ELECTRONICALLY SIGNED IN OTHER VENDOR SYSTEM Resulting Agency Comment O Procedure Note Ilia Blank MD - 03/08/2020 Patient Name: ACE LEPE Dr: Ninfa Dawson MD D.O.B: 1970 Exam Date: 03/08/2028 Age: 50 Sex: Female MR#: [id number] Loc: RADIOLOGY REPORT Order #[id number] [facility] Porfirio Bilat Screening 3D Signed [...] is made to exams dated: 09/11/2017 mammogram -[facility], 06/10/2016 mammogram, and 05/05/2014 mammogram -[place]. BREAST TISSUE: There are scattered areas of [...] age 40, based on guidelines of the [place] [employer] (ACR Practice Parameter for the Performance of Screening and Diagnostic Mammography) and [place] [employer]ians and Gynecologists. For women with an elevated risk of breast cancer, pleaserefer to the ACR Practice Parameter for specific screening recommendations. The patient will be entered into a reminder system with a target due dateof 1 year for her next screening exam. Electronically signed by: Ilia Jolley rl/mandeep:03/08/2020 11:36:31 Ostomy Care Nurse: Chelo Etienne, [facility] letter sent: Normal Exam Reading location: BI-RADS: 1 Negative REPORT ELECTRONICALLY SIGNED IN OTHER VENDOR SYSTEM us Ninfa Angulo MD IMG MAMMO PROCEDURES Aida l Result * Hepatitis C antibody (02/12/2018 3:35 PM CDT) Hep C Ab NONREACT NONREACTIVE 02/12/2018 8:03 PM CDT [facility] HISTORICAL RESULTS Comment: Siemens CentaurXP using ELIN [...] MICROBIOLOGY - GENERAL OR DERABLES Final Result [facility] HISTORICAL RESULTS from Last 3 Months or Most Recently Relevant to Health Maintenance Insurance [facility] CMR Care Teams Django Developer Relationship Specialty Start Date End Date Todd Nuñez MD [address] [place] [address] PCP - General 03/08/20 Todd Nuñez MD [address] [place], [place] [id number] Internal Medicine 03/07/19
== END 2024-08-12 07:45 | disposition home or self-care (01) ==
PROVIDERS: PCP Nurse Practitioner Family; Visit Provider Nurse Practitioner Family
DX: Z12.31 Encounter for screening mammogram for malignant neoplasm of breast (principal)
CPT/HCPCS: 77063; 77067